=== PATIENT | male | born 1980 | race Caucasian/White ===

== ENCOUNTER 2023-05-21 08:15 | Emergency (ER) | payer OTHER, SELFPAY ==
[2023-05-21 08:29] VITALS: BP 129/79; PULSE 101; RESP 20; TEMP 36.8; O2SAT 97; BMI 30.7
--- NOTE | 2023-05-21 08:45 | XR_ITS ---
The [address] [address] Patient Name: JOLLY SINHA MRN: [id number] date: 1980 Sex: M Assigned Patient Location: ER Current Patient Location: ER Accession/Order Number: [id number] Exam Date: 05/21/2023 09:00 Report Date: 05/21/2023 09:18 At the request of: DEON YAP Procedure: XR chest 1V EXAMINATION: XR chest 1V HISTORY: chest pain COMPARISON: No relevant comparison available. TECHNIQUE: AP portable erect FINDINGS: LUNGS: No significant pulmonary parenchymal abnormalities. VASCULATURE: No increased pulmonary vasculature. PLEURA: No pneumothorax, effusion, or pleural thickening. CARDIAC: No cardiomegaly or cardiac silhouette abnormality. MEDIASTINUM: No visible mass or adenopathy. BONES: No fracture or visible bone lesion. OTHER: Negative. XR/XR chest 1V IMPRESSION: No acute cardiopulmonary process Electronically authenticated by: THONY VAUGHAN Date: 05/21/2023 09:18
--- NOTE | 2023-05-21 08:45 | ECG_ITS ---
The [facility] Test Date: 2023-05-21 Pat Name: JOLLY SINHA Department: Room: - Gender: Male [employer]: : 1980 Requested By: [id number] Order Number: [id number] Reading MD: KEITH BURCIAGA Measurements Intervals [place] Rate: 93 P: 55 ID: [id number] QRS: 69 QRSD: 110 T: 63 QT: 340 QTc: 390 Interpretive Statements 1100 Sinus rhythm 2440 Incomplete right bundle branch block 4068 Nonspecific Tw[place] abnormality 9130 borderline ECG No previous ECG available for comparison Electronically Signed On 05-22-2023 7:02:33 EST by KEITH BURCIAGA
[2023-05-21] MEDS: ACETAMINOPHEN 325 MG TABLET 650 MG PO (09:04)
[2023-05-21 09:25] LABS: Influenza Virus A Antigen Positive; Influenza Virus B Antigen Negative; Internal Control Within Normal Limits; SARS-CoV-2 Ag NEGATIVE (NEGATIVE)
--- NOTE | 2023-05-21 09:58 | ED_ITS ---
HPI - General Adult General Chief complaint: Upper Respiratory Infection Stated complaint: FEVER/ CHEST PAIN Time Seen by Provider: 05/21/23 08:40 Source: patient Mode of arrival: walk-in History of Present Illness HPI narrative: Patient presented to us with 3 days history of upper respiratory tract infection symptoms of runny nose as well as body aches and fever in addition to a cough productive of whitish sputum. The patient have no nausea no vomiting he does have some chest pain that is there whenever he coughs or take a deep breath, no exposure to anybody with similar symptoms. Related Data Previous Rx's Medication Instructions Recorded oseltamivir 75 mg capsule (Tamiflu) 75 mg PO Q12H 5 days #10 caps 05/21/23 Allergies Allergy/AdvReac Type Severity Reaction Status Date / Time Penicillins AdvReac Intermediate Verified 05/21/23 08:29 Review of Systems ROS Status of ROS 10 or more systems reviewed and unremark able except as noted in history and below PFSH PFSH Social History Smoking status: Current every day smoker Exam Narrative Exam Narrative: Nurses notes and vital signs reviewed and patient is not hypoxic. General: Well-appearing and in no apparent distress. Skin: Warm, dry, no pallor noted. No rash. Head: Normocephalic, atraumatic. Neck: Supple, non-tender. Eye: Pupils are equal, round and EOMI. No scleral icterus. Ears, Nose, Mouth, and Throat: TM are clear, no nasal mucosal hypertrophy. Oral mucosa is moist, no posterior oropharynx erythema, uvula is mid-line Cardiovascular: Regular Rate and Rhythm without murmur, gallop or rub. Respiratory: No accessory muscle use or respiratory distress. Lungs are clear to auscultation, no wheezing, rales or rhonchi Chest Wall: no tenderness Back: No midline thoracic or lumbar vertebral tenderness. No CVA tenderness Musculoskeletal: normal ROM, no calf or popliteal tenderness, no lower extremity edema/swelling GI: Abdomen is soft, non-distended. Normal bowel sounds. No masses appreciated. No tenderness to palpation. No rebound, guarding, or rigidity noted. Neurological: A&O x4. No cranial nerve dysfunction observed. No truncal ataxia. Moves all extremities. Sensation intact. Psychiatric: Cooperative and interactive. Normal mood and affect. Constitutional Vital Signs, click to edit/add: Last Vital Signs Temp 98.3 F 05/21/23 08:29 Pulse 101 H 05/21/23 08:29 Resp 20 05/21/23 08:29 BP 129/79 05/21/23 08:29 Pulse Ox 97 05/21/23 08:29 O2 Del Method Room Air 05/21/23 08:29 Course Vital Signs Vital signs: Vital Signs Temperature 98.3 F 05/21/23 08:29 Pulse Rate 101 H 05/21/23 08:29 Respiratory Rate 20 05/21/23 08:29 Blood Pressure 129/79 05/21/23 08:29 Pulse Oximetry 97 05/21/23 08:29 Oxygen Delivery Method Room Air 05/21/23 08:29 Temperature 98.3 F 05/21/23 08:29 Pulse Rate 101 H 05/21/23 08:29 Respiratory Rate 20 05/21/23 08:29 Blood Pressure 129/79 05/21/23 08:29 Pulse Oximetry 97 05/21/23 08:29 Oxygen Delivery Method Room Air 05/21/23 08:29 Medical Decision Making [facility] Narrative Medical decision making narrative: EKG showing sinus rhythm with a heart rate of [address] elevation or depression Chest x-ray showed no acute pathology The patient is positive for influenza A he was started on Tamiflu for the next 5 days The patient to continue hydration at home The patient is to follow up with primary care physician in next 2-3 days or to return to the emergency department should any of the signs or symptoms worsen or new symptoms develop. The patient agrees with the following Diagnosis and Treatment plan and the patient will be discharged home. Lab Data Labs: Lab Results 05/21/23 Range/Units 08:59 Influenza Type A Ag Positive A Influenza Type B Ag Negative SARS-CoV-2 Ag (CV2AG) Negative (NEGATIVE) Discharge Plan Discharge Chief Complaint: Upper Respiratory Infection Clinical Impression: Flu Patient Disposition: Home, Self-Care Time of Disposition Decision: 09:52 Condition: Good Mode of Transportation: Private Vehicle Prescriptions / Home Meds: New oseltamivir [Tamiflu] 75 mg capsule 75 mg PO Q12H 5 Days Qty: 10 0RF Instructions: Influenza (DC) Stand Alone Forms: Portal Instructions Referrals: Physician,Non-Staff, MD [Primary Care Provider] - 1 week
== END 2023-05-21 10:07 | disposition home or self-care (01) ==
PROVIDERS: Emergency Provider Emergency Medicine
DX: J10.1 Influenza due to other identified influenza virus with other respiratory manifestations (principal); F17.210 Nicotine dependence, cigarettes, uncomplicated; Z20.822 Contact with and (suspected) exposure to COVID-19
CPT/HCPCS: 71045; 87804; 87811; 93005; 99285

== ENCOUNTER 2024-03-16 07:29 | Emergency (ER) | payer OTHER, SELFPAY ==
[2024-03-16 07:34] VITALS: BP 113/75; PULSE 84; TEMP 36.7; O2SAT 96; BMI 27.2
--- NOTE | 2024-03-16 07:43 | CT_ITS ---
[address] [address] Patient Name: JOLLY SINHA MRN: [id number] date: 1980 Sex: M Assigned Patient Location: ER Current Patient Location: Accession/Order Number: [id number] Exam Date: 03/16/2024 08:04 Report Date: 03/16/2024 09:04 At the request of: MATT SPARKS Procedure: CT abdomen pelvis wo con EXAMINATION: CT abdomen pelvis wo con HISTORY: Hematuria, back pain, rule out stone ; bilateral flank pain COMPARISON: No relevant comparison available. TECHNIQUE: Axial, Coronal, and Sagittal images were obtained without and/or with IV contrast as indicated by examination type. Dose reduction techniques were achieved by using automated exposure control and/or adjustment of mA and/or kV according to patient size and/or use of iterative reconstruction technique. FINDINGS: LUNG BASES: No visible pulmonary or pleural disease. LIVER: No enlargement, atrophy, suspicious density, or significant focal lesion. BILIARY: No dilatation or calcification. PANCREAS: No lesion, fluid collection, or abnormal duct dilatation. SPLEEN: No enlargement or focal lesion. ADRENALS: No mass or enlargement. KIDNEYS: No mass, obstruction, or calcification. BOWEL/MESENTERY: No visible mass, obstruction, or bowel wall thickening. Normal appendix. AORTA/VASCULAR: No aneurysm or dissection. RETROPERITONEUM: No mass or adenopathy. LYMPH NODES: No adenopathy. URINARY BLADDER: No visible focal wall thickening, lesion, or calculus. PELVIC ORGANS: No visible mass. Pelvic organs appropriate for patient age. ABDOMINAL WALL: Small fat filled right inguinal hernia without strangulation. BONES: Mild-moderate osteonecrosis of right femoral head. OTHER: Negative. CT/CT abdomen pelvis wo con IMPRESSION: 1. No urinary tract calculi or obstructive uropathy. 2. Unremarkable bowel. 3. Mild-moderate osteonecrosis/avascular necrosis of right femoral head. Consider MRI for further evaluation. 3. No acute abnormality or appreciable significant degenerative changes of the lumbar spine. Electronically authenticated by: WENDIE MONROY Date: 03/16/2024 09:04
--- NOTE | 2024-03-16 07:43 | ED.MALEGU1 ---
HPI - Male Genitourinary General Chief complaint: Urogenital-Male Stated complaint: BLOOD IN URINE Time Seen by Provider: 03/16/24 07:33 Source: patient Mode of arrival: walk-in Limitations: no limitations History of Present Illness HPI Narrative: 43-year-old male presents for intermittent hematuria. He states it first happened about a month ago. He has had some bilateral back pain and has a history of kidney stones. There is been no injury and he has not had abdominal pain. No fever or complaints of dysuria. He believes he passed a blood clot the other day. Related Data Home Medications ?Medication ?Instructions ?Recorded ?Confirmed allopurinol 300 mg tablet 300 mg PO DAILY 03/16/24 03/16/24 atorvastatin 20 mg tablet 20 mg PO .QHS 03/16/24 03/16/24 cholecalciferol (vitamin D3) 50 50 mcg PO DAILY 03/16/24 03/16/24 mcg (2,000 unit) tablet ibuprofen 800 mg tablet 800 mg PO Q8H PRN pain 03/16/24 03/16/24 Allergies Allergy/AdvReac Type Severity Reaction Status Date / Time Penicillins AdvReac Intermediate Verified 05/21/23 08:29 Review of Systems ROS Narrative A ten point review of systems is negative except as noted above. PFSH PFSH Social History Smoking status: Current every day smoker Little interest or pleasure in doing things: not at all Feeling down, depressed, or hopeless: not at all Exam Narrative Exam Narrative: Nurses note and vital signs reviewed and patient is not hypoxic. General: The patient appears well and in no apparent distress. Patient is resting comfortably on cart. Skin: Warm, dry, no pallor noted. There is no rash noted. Head: Normocephalic, atraumatic Eye: Normal conjunctiva, no drainage Ears, Nose, Mouth, and Throat: oral mucosa is moist. Nares patent. Cardiovascular: Regular Rate and Rhythm Respiratory: Patient is in no distress, no accessory muscle use, lungs are clear to auscultation, no wheezing, rales or rhonchi Back: non-tender, no CVA tenderness bilaterally to percussion. No bruise or rash GI: Nontender Musculoskeletal: The patient has no evidence of calf tenderness, no pitting edema, symmetrical pulses noted bilaterally Neurological: A&O, normal speech Psychiatric: Cooperative Constitutional Vital Signs, click to edit/add: Last Vital Signs Temp 98.1 F 03/16/24 07:34 Pulse 84 03/16/24 07:34 Resp 18 03/16/24 07:34 BP 113/75 03/16/24 07:34 Pulse Ox 96 03/16/24 07:34 O2 Del Method Room Air 03/16/24 07:34 Course Vital Signs Vital signs: Vital Signs Temperature 98.1 F 03/16/24 07:34 Pulse Rate 84 03/16/24 07:34 Respiratory Rate 18 03/16/24 07:34 Blood Pressure 113/75 03/16/24 07:34 Pulse Oximetry 96 03/16/24 07:34 Oxygen Delivery Method Room Air 03/16/24 07:34 Temperature 98.1 F 03/16/24 07:34 Pulse Rate 84 03/16/24 07:34 Respiratory Rate 18 03/16/24 07:34 Blood Pressure 113/75 03/16/24 07:34 Pulse Oximetry 96 03/16/24 07:34 Oxygen Delivery Method Room Air 03/16/24 07:34 MDM - Male Genitourinary MDM Narrative Medical decision making narrative: Urinalysis shows no blood and CT shows no stone or other abnormality. He is referred to urology if this recurs. Treatment diagnosis and follow-up were discussed with the patient. Differential Diagnosis Differential diagnosis: Likely urinary tract infection and other (Kidney stone, hematuria) Lab Data Attestation: I reviewed the patient's lab results. Labs: Lab Results 03/16/24 03/16/24 Range/Units 07:40 07:53 WBC 10.9 (4.0-11.0) 10^3/uL RBC 4.68 L (4.70-6.10) 10^6/uL Hgb 16.0 (14.0-18.0) g/dL Hct 44.6 (42.0-54.0) % MCV 95.3 H (80.0-94.0) fL MCH 34.2 H (25.9-34.0) pg MCHC 35.9 H (29.9-35.2) g/dL RDW 11.8 (11.0-15.0) % Plt Count 232 (150-450) 10^3/uL MPV 11.1 (9.5-13.5) fL Neut % (Auto) 61.2 (43.0-75.0) % Lymph % (Auto) 26.1 (20.5-60.0) % [place] % (Auto) 7.7 (1.7-12.0) % Eos % (Auto) 3.2 (0.9-7.0) % Baso % (Auto) 0.9 (0.2-2.0) % Neut # (Auto) 6.7 H (1.4-6.5) 10^3/uL Lymph # (Auto) 2.9 (1.2-3.8) 10^3/uL [place] # (Auto) 0.8 (0.3-0.8) 10^3/uL Eos # (Auto) 0.4 (0.0-0.7) 10^3/uL Baso # (Auto) 0.1 (0.0-0.1) 10^3/uL Abs Immat Gran (auto) 0.10 H (0.00-0.03) 10^3/uL Imm/Tot Granulo (auto) 0.9 H (0.0-0.5) % Sodium 140 (136-145) mmol/L Potassium 4.2 (3.5-5.1) mmol/L Chloride 103 (98-107) mmol/L Carbon Dioxide 22.6 (21.0-32.0) mmol/L Anion Gap 18.6 BUN 16.0 (7.0-18.0) mg/dL Creatinine 1.31 H (0.70-1.30) mg/dL Est GFR ( Amer) >60 (>=60 mL/min/1.73m^2) Est GFR (Non-Af Amer) 59 L (>=60 mL/min/1.73m^2) BUN/Creatinine Ratio 12.2 Glucose 133 H (74-106) mg/dL Calcium 8.7 (8.5-10.1) mg/dL Urine Color Lt. yellow (YELLOW) Urine Clarity Slightly cloudy A (CLEAR) Urine pH 7.0 (5.0-9.0) Ur Specific [place] 1.020 (1.005-1.025) Urine Protein 100 A (NEG/TRACE) mg/dL Urine Glucose (UA) Negative (NEGATIVE) mg/dL Urine Ketones Negative (NEGATIVE) mg/dL Urine Occult Blood Negative (NEGATIVE) Urine Nitrite Negative (NEGATIVE) Urine Bilirubin Negative (NEGATIVE) Urine Urobilinogen 0.2 (0.2-1.0) EU/dL Ur Leukocyte Esterase Negative (NEGATIVE) Urine RBC None seen (0-2) #/HPF Urine WBC None seen (NONE SEEN) #/HPF Ur Squamous Epith Cells Rare (NONE/RARE) #/LPF Urine Crystals Seen A (None Seen) #/HPF Amorphous Sediment Many Urine Bacteria None seen (NONE SEEN) #/HPF Urine Mucus None seen (NONE SEEN) Imaging Data CT scan - abdomen: Radiologist's impression: ITS Impressions Abdomen/Pelvis CT 03/16/24 07:43 IMPRESSION: 1. No urinary tract calculi or obstructive uropathy. 2. Unremarkable bowel. 3. Mild-moderate osteonecrosis/avascular necrosis of right femoral head. Consider MRI for further evaluation. 3. No acute abnormality or appreciable significant degenerative changes of the lumbar spine. Electronically authenticated by: WENDIE MONROY Date: 03/16/2024 09:04 Discharge Plan Discharge Chief Complaint: Urogenital-Male Clinical Impression: Hematuria Patient Disposition: Home, Self-Care Time of Disposition Decision: 09:17 Condition: Good Mode of Transportation: Private Vehicle Prescriptions / Home Meds: No Action atorvastatin 20 mg tablet 20 mg PO .QHS ibuprofen 800 mg tablet 800 mg PO Q8H PRN (Reason: pain) allopurinol 300 mg tablet 300 mg PO DAILY cholecalciferol (vitamin D3) 50 mcg (2,000 unit) tablet 50 mcg PO DAILY Print Language: [place] Instructions: Hematuria (ED) Referrals: Physician,Non-Staff, [Primary Care Provider] - 1 week Gary Louis MD [Physician] -
[2024-03-16 07:58] LABS: Basophils Absolute Auto 0.1 10^3/uL (0.0-0.1); Basophils Percent Auto 0.9 % (0.2-2.0); Eosinophils Absolute Auto 0.4 10^3/uL (0.0-0.7); Eosinophils Percent Auto 3.2 % (0.9-7.0); Hematocrit 44.6 % (42.0-54.0); Immature Granulocytes Pct Auto 0.9 % (0.0-0.5); Lymphocytes Absolute Auto 2.9 10^3/uL (1.2-3.8); Lymphocytes Percent Auto 26.1 % (20.5-60.0); Mean Corpuscular HGB Conc 35.9 g/dL (29.9-35.2); Mean Corpuscular Hemoglobin 34.2 pg (25.9-34.0); Mean Corpuscular Volume 95.3 fL (80.0-94.0); Mean Platelet Volume 11.1 fL (9.5-13.5); Monocytes Absolute Auto 0.8 10^3/uL (0.3-0.8); Monocytes Percent Auto 7.7 % (1.7-12.0); Neutrophils Absolute Auto 6.7 10^3/uL (1.4-6.5); Neutrophils Percent Auto 61.2 % (43.0-75.0); Platelet Count 232 10^3/uL (150-450); Red Blood Count 4.68 10^6/uL (4.70-6.10); Red Cell Distribution Width 11.8 % (11.0-15.0); White Blood Count 10.9 10^3/uL (4.0-11.0)
[2024-03-16 08:00] LABS: Bilirubin Urine NEGATIVE (NEGATIVE); Blood Urine NEGATIVE (NEGATIVE); Color Urine LT. YELLOW (YELLOW); Glucose Urine UA NEGATIVE (NEGATIVE); Ketones Urine NEGATIVE (NEGATIVE); Leukocyte Esterase Urine NEGATIVE (NEGATIVE); Nitrite Urine NEGATIVE (NEGATIVE); Protein Urine 100 mg/dL (NEG/TRACE); Urobilinogen Urine 0.2 EU/dL (0.2-1.0)
[2024-03-16 08:02] LABS: Clarity Urine SLIGHTLY CLOUDY (CLEAR)
[2024-03-16 08:06] LABS: Bacteria Urine NONE SEEN #/HPF (NONE SEEN); Mucus Urine NONE SEEN (NONE SEEN); RBC Urine NONE SEEN #/HPF (0-2); Squamous Epithelial Cell Urine RARE #/LPF (NONE/RARE); WBC Urine NONE SEEN #/HPF (NONE SEEN)
[2024-03-16 08:07] LABS: Amorphous Sediment Urine MANY; Crystals Seen? Seen #/HPF (None Seen)
[2024-03-16 08:09] LABS: Anion Gap 18.6; BUN Creatinine Ratio 12.2; Calcium 8.7 mg/dL (8.5-10.1); Carbon Dioxide 22.6 mmol/L (21.0-32.0); Chloride 103 mmol/L (98-107); Estimated GFR (African America >60 (>=60 mL/min/1.73m^2); Estimated GFR (Non-African Ame 59 (>=60 mL/min/1.73m^2); Sodium 140 mmol/L (136-145)
[2024-03-16 08:12] LABS: Glucose 133 mg/dL (74-106); Potassium 4.2 mmol/L (3.5-5.1)
== END 2024-03-16 09:40 | disposition home or self-care (01) ==
PROVIDERS: Emergency Provider Emergency Medicine
DX: R31.9 Hematuria, unspecified (principal); Z87.442 Personal history of urinary calculi; F17.200 Nicotine dependence, unspecified, uncomplicated
CPT/HCPCS: 36415; 74176; 80048; 81001; 85025; 99284